=== PATIENT | male | born 1965 | race Caucasian/White ===

== ENCOUNTER 2017-02-10 10:15 | Emergency (ER) | payer BC, OTHER ==
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
[2017-02-10 10:56] VITALS: BP 159/107
[2017-02-10] MEDS ORDERED: Sodium Chloride 0.9% 1,000 ML IV SCH (12:15)
[2017-02-10] MEDS ORDERED: Iopamidol 612 MG/ML 75 ML Bottle IVPUSH ONE (12:46)
[2017-02-10] MEDS ORDERED: HYDROmorphone 1 MG/ML Syringe IVPUSH ONE (13:09)
[2017-02-10] MEDS ORDERED: Ondansetron 4 MG/2 ML SDV IV ONE (13:11)
[2017-02-10] MEDS ORDERED: Ketorolac 30 MG/ML SDV IVPUSH ONE (14:57)
[2017-02-10] MEDS ORDERED: Tamsulosin 0.4 MG Cap.ER PO ONE (14:57)
== END 2017-02-10 15:30 | disposition home or self-care (01) ==
LOC: DL.ED 10:15
DX: N13.2 Hydronephrosis with renal and ureteral calculous obstruction (principal); E11.9 Type 2 diabetes mellitus without complications; Z98.890 Other specified postprocedural states; Z87.891 Personal history of nicotine dependence; Z79.84 Long term (current) use of oral hypoglycemic drugs; Z79.82 Long term (current) use of aspirin; Z79.899 Other long term (current) drug therapy; Z88.5 Allergy status to narcotic agent
CPT/HCPCS: 36415; 74178; 80053; 81001; 85025; 96361; 96374; 96375; 99284; A9270; J1170; J1885; J2405; J7030; Q9967

== ENCOUNTER 2017-03-31 08:49 | Emergency (ER) | payer OTHER, BC ==
[2017-03-31 09:06] VITALS: BP 152/71
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
== END 2017-03-31 09:20 | disposition home or self-care (01) ==
LOC: DL.ED 08:49
DX: S13.4XXA Sprain of ligaments of cervical spine, initial encounter (principal); I10 Essential (primary) hypertension; Z88.5 Allergy status to narcotic agent; Z79.82 Long term (current) use of aspirin; Z79.84 Long term (current) use of oral hypoglycemic drugs; Z79.899 Other long term (current) drug therapy; Z87.891 Personal history of nicotine dependence; V49.9XXA Car occupant (driver) (passenger) injured in unspecified traffic accident, initial encounter
CPT/HCPCS: 99283

== ENCOUNTER 2023-11-21 06:34 | Day surgery (SDC) | payer BC, MEDICAID, OTHER ==
[2023-11-21] MEDS ORDERED: Midazolam 1 MG/ML 2 ML SDV IV ONE (06:35)
[2023-11-21] MEDS ORDERED: fentaNYL 100 MCG/2 ML SDV IV ONE (06:35)
[2023-11-21] MEDS ORDERED: Midazolam 1 MG/ML 2 ML SDV ONE (06:37)
[2023-11-21] MEDS ORDERED: fentaNYL 100 MCG/2 ML SDV ONE (06:37)
[2023-11-21] MEDS: Dextrose 5%-0.45% NaCl 1,000 ML IV SCH (07:38)
[2023-11-21] MEDS: fentaNYL 100 MCG/2 ML SDV IV ONE ×2 (07:43→07:44)
[2023-11-21] MEDS: Midazolam 1 MG/ML 2 ML SDV IV ONE ×2 (07:44→07:45)
[2023-11-21 09:31] VITALS: BP 141/73; PULSE 80
== END 2023-11-21 09:42 | disposition home or self-care (01) ==
LOC: DL.ENDO 06:34
PROVIDERS: ATTEND Internal Medicine Gastroenterology
DX: K29.50 Unspecified chronic gastritis without bleeding (principal); E11.43 Type 2 diabetes mellitus with diabetic autonomic (poly)neuropathy; K31.84 Gastroparesis; I10 Essential (primary) hypertension; G47.33 Obstructive sleep apnea (adult) (pediatric)
CPT/HCPCS: 87077; J2250; J3010; J7799

== ENCOUNTER 2024-09-17 16:26 | Emergency (ER) | payer BC ==
[2024-09-17 16:40] VITALS: BP 181/91; PULSE 98
== END 2024-09-17 16:50 ==
LOC: DL.ED 16:26
DX: R42 Dizziness and giddiness (principal); I10 Essential (primary) hypertension; E11.9 Type 2 diabetes mellitus without complications; Z79.84 Long term (current) use of oral hypoglycemic drugs; Z79.82 Long term (current) use of aspirin; Z79.899 Other long term (current) drug therapy; Z88.5 Allergy status to narcotic agent; Z88.8 Allergy status to other drugs, medicaments and biological substances; Z95.1 Presence of aortocoronary bypass graft
CPT/HCPCS: 99283